=== PATIENT | male | born 1995 | race Caucasian/White ===

== ENCOUNTER 2017-10-29 08:00 | Emergency (ER) | payer BC, OTHER ==
[~2017-10-29] VITALS: Ht 177.8 cm; Wt 79.7 kg
[2017-10-29 08:07] VITALS: BP 130/76; PULSE 81; TEMP 36.7; O2SAT 98; Ht 177.8 cm; Wt 79.7 kg
--- NOTE | 2017-10-29 08:31 | EMERGENCY ROOM VISIT NOTE ---
ED Visit Note First contact with patient: 08:15 CHIEF COMPLAINT: Suture removal HPI: This patient returns to the ED today for removal of sutures on the left yanes that were placed 9 days ago. There has been no swelling, redness, or drainage from the wound. The patient feels like the laceration is healing well. REVIEW OF SYSTEMS: A complete 6 point review of systems was reviewed with the patient with pertinent positives and negatives as per history of present illness. All else were negative. PMH: The patient is healthy; there is no significant medical or surgical history. SOCIAL HISTORY: Patient lives locally. He denies drug, alcohol, tobacco use. PHYSICAL EXAM: Vital Signs: Reviewed Nurse's notes. There is a sutured wound on the left yanes with no signs of infection. There is no erythema, swelling, or tenderness. EMERGENCY DEPARTMENT COURSE: The sutures were removed without any difficulty and there was no separation of the wound edges. I attest that I have personally reviewed the patient's current medication list. Patient was found to have normal blood pressure on screening and does not require follow-up. Differential diagnosis includes laceration, contusion, fracture, sprain/strain, tendon or ligament injury, neurovascular compromise, foreign body, assault, and others DIAGNOSIS: Healing laceration and suture removal The chart was completed utilizing [employer] Speech voice recognition software. Grammatical errors, random word insertions, pronoun errors, and incomplete sentences are an occasional consequence of this system due to software limitations, ambient noise, and hardware issues. Any formal questions or concerns about the content, text, or information contained within the body of this dictation should be directly addressed to the provider for clarification. Current/Historical Medications No Active Prescriptions or Reported Meds Allergies Coded Allergies: No Known Allergies (Unverified , 10/20/17) Vital Signs Date Time Temp Pulse Resp B/P (MAP) Pulse Ox O2 Delivery O2 Flow Rate FiO2 10/29/17 08:07 36.7 81 20 130/76 98 Room Air Departure Information Impression Primary Impression: Encounter for removal of sutures Additional Impression: Laceration of left lower extremity Dispostion Home / Self-Care Condition GOOD Prescriptions No Active Prescriptions or Reported Meds Referrals No Doctor, Assigned (PCP) Patient Instructions ED Wound Check Sutr Remove No Infec, My [facility] Additional Instructions Proper wound care is essential for adequate wound healing and infection prevention. You can shower and clean the wound with soap and water. Do not scour over the wound, pat dry with a towel. Do not submerse the wound (i.e. bathe or dish wash) until the wound has fully healed. You can use an antibiotic ointment with a dressing over the wound for the next 3-4 days. After this time you may leave the wound dry and open to the air. Ibuprofen(Motrin, Advil) may be used for fever or pain. Use 600mg every six hours as needed. Take with food. Avoid using more than 2400mg in a 24 hour period. Do not use 2400mg per day for more than three consecutive days without physician direction. Prolonged inappropriate use can lead to stomach upset or ulcers. (AND/OR) Acetaminophen(Tylenol) may be used for fever or pain. Use 1000mg every six hours as needed. Avoid using more than 3000mg in a 24 hour period. Return to the emergency department for any worsening symptoms or concerns. Problem Qualifiers Additional Impression: Laceration of left lower extremity Encounter type: subsequent encounter Qualified Codes: S81.812D - Laceration without foreign body, left lower leg, subsequent encounter
== END 2017-10-29 08:32 | disposition home or self-care (01) ==
LOC: C.EDB 08:04 → C.EDA 08:32
DX: S81.812D Laceration without foreign body, left lower leg, subsequent encounter (principal); X58.XXXD Exposure to other specified factors, subsequent encounter